=== PATIENT | male | born 1965 | race Caucasian/White ===

== ENCOUNTER 2016-07-11 05:07 | Inpatient (IN) | payer BC ==
[~2016-07-11] VITALS: Ht 182.9 cm; Wt 110.8 kg
[~2016-07-11 05:07] MED LIST: ALBUTEROL SULF8.5 GM IH; AZITHROMYCIN500 M1 PO; CEFTIN500 MG PO; CYCLOBENZAPRINE10 MG PO; DUONEB 2.5-0.5 M3 ML IH; ESCITALOPRAM OX10 MG PO; LEVAQUIN750 MG PO; MEN'S ONE DAIL1 EACH PO; MONTELUKAST SOD10 MG PO; PREDNISONE10 MG PO; PREDNISONE20 MG PO; PREDNISONE50 MG PO; PROAIR HFA8.5 GM IH; PROVENTIL,2.5 MG/3 M IH; SYMBICORT60 INHALAT IH; TENSION HEADAC1 EACH PO; VENTOLIN HFA18 GM IH; VITAMIN D250000 UNIT PO; ZITHROMAX Z-PA250 MG PO
[2016-07-11 05:48] LABS: CARBON DIOXIDE (BICARBONATE) 28.5 MEQ/L (20-31)
[2016-07-11 05:52] LABS: CHLORIDE 108 mEq/L (99-109); SODIUM 141 mEq/L (136-147)
[2016-07-11 05:54] LABS: GLUCOSE 153 mg/dL (70-99)
[2016-07-11 05:55] LABS: ANION GAP 9 MEQ/L (2-14)
[2016-07-11 05:58] LABS: HEMATOCRIT 45.4 % (38.0-50.0); MCH 29.5 PG (29.0-34.0); MCHC 33.3 G/DL (30.0-36.0); MCV 88.7 FL (86-99); MEAN PLAT.VOLUME 10.4 uM^3 (9.0-12.4); PLATELET COUNT 179 K/uL (156-360); RBC DIS.WIDTH-SD 38.7 % (39-53); RED BLOOD COUNT 5.12 M/uL (4.00-5.50); WHITE BLOOD COUNT 8.1 K/uL (4.1-10.2)
[2016-07-11 05:58] LABS: GFR ESTIMATE (CALCULATED) > 59 mL/min/
[2016-07-11 05:59] LABS: UREA NITROGEN (BUN) 17 mg/dL (9-23)
[2016-07-11 06:06] LABS: TROP-I INTERPRETATION NEGATIVE; TROPONIN-I < 0.01 ng/mL (0.0-0.30)
[2016-07-11 09:02] LABS: BASE EXCESS -3.2 mEq/L (-3 to +3); BICARBONATE 22.7 mEq/L (22-26); CARBOXY HGB 1.5 % (0-5); COMMENTS - BLOOD GASES A+C+; DEVICE NC; METHEMOGLOBIN 1.1 % (0-1.5); O2 FLOW 2 L/MIN; PCO2 43 mm Hg (35-45); PO2 78 mm Hg (80-100); SITE RR; TOTAL RESP RATE 13 resp/min; pH 7.33 (7.35-7.45)
[2016-07-11] MEDS ORDERED: PROAIR HFA8.5 GM IH (11:54)
[2016-07-11] MEDS ORDERED: CELEXA20 MG PO (11:57)
[2016-07-11 12:06] VITALS: BP 113/56
[2016-07-11 15:10] VITALS: BP 125/56
[2016-07-11 20:00] VITALS: BP 106/66
[2016-07-12] VITALS (7 sets, daily range): BP systolic 108–131; BP diastolic 52–78
[2016-07-12 05:42] LABS: ANION GAP 9 MEQ/L (2-14); CHLORIDE 108 MEQ/L (99-109); GFR ESTIMATE (CALCULATED) > 59 mL/min/; GLUCOSE 147 mg/dL (70-99); POTASSIUM 4.2 MEQ/L (3.7-5.4); SAMPLE HEMOLYSIS CHECK 0; SAMPLE ICTERIC CHECK 0; SAMPLE LIPEMIA CHECK 0; SODIUM 144 MEQ/L (136-147); UREA NITROGEN (BUN) 15 mg/dL (9-23)
[2016-07-12 06:30] LABS: HEMATOCRIT 39.2 % (38.0-50.0); MCH 29.6 PG (29.0-34.0); MCHC 33.2 G/DL (30.0-36.0); MCV 89.3 FL (86-99); PLATELET COUNT 191 K/uL (156-360); RBC DIS.WIDTH-CV 12.5 % (11.8-14.6); RBC DIS.WIDTH-SD 40.7 % (39-53); RED BLOOD COUNT 4.39 M/uL (4.00-5.50)
[2016-07-12 06:41] LABS: WHITE BLOOD COUNT 14.1 K/uL (4.1-10.2)
[2016-07-13 03:50] VITALS: BP 126/76
[2016-07-13 07:55] LABS: HEMATOCRIT 41.5 % (38.0-50.0); MCH 29.6 PG (29.0-34.0); MCHC 32.8 G/DL (30.0-36.0); MCV 90.2 FL (86-99); MEAN PLAT.VOLUME 10.4 uM^3 (9.0-12.4); PLATELET COUNT 199 K/uL (156-360); RBC DIS.WIDTH-CV 12.8 % (11.8-14.6); RBC DIS.WIDTH-SD 41.8 % (39-53); WHITE BLOOD COUNT 20.3 K/uL (4.1-10.2)
[2016-07-13 08:19] VITALS: BP 130/76
[2016-07-13 08:19] LABS: ANION GAP 7 MEQ/L (2-14); CHLORIDE 109 MEQ/L (99-109); GFR ESTIMATE (CALCULATED) > 59 mL/min/; GLUCOSE 99 mg/dL (70-99); MAGNESIUM 2.1 mg/dl (1.3-2.7); POTASSIUM 4.1 MEQ/L (3.7-5.4); SAMPLE HEMOLYSIS CHECK 0; SAMPLE ICTERIC CHECK 0; SAMPLE LIPEMIA CHECK 0; SODIUM 142 MEQ/L (136-147); UREA NITROGEN (BUN) 17 mg/dL (9-23)
[2016-07-13] MEDS ORDERED: MONTELUKAST SOD10 MG PO (08:35)
[2016-07-13] MEDS ORDERED: ADVAIR HFA120 INHALA IH (08:35)
[2016-07-13] MEDS ORDERED: PREDNISONE20 MG PO (08:35)
== END 2016-07-13 12:08 | disposition home or self-care (01) | DRG 189 ==
LOC: EME 05:07 → 4SOUTH 08:36 → EDOF 08:36 → 4SOUTH 12:03
PROVIDERS: Emergency Medicine; Hospitalist; Internal Medicine
DX: J96.01 Acute respiratory failure with hypoxia (principal); J44.1 Chronic obstructive pulmonary disease with (acute) exacerbation; J44.0 Chronic obstructive pulmonary disease with (acute) lower respiratory infection; J18.9 Pneumonia, unspecified organism; E87.2 Acidosis; Z87.891 Personal history of nicotine dependence; E66.9 Obesity, unspecified; Z88.2 Allergy status to sulfonamides; Z88.6 Allergy status to analgesic agent; J96.02 Acute respiratory failure with hypercapnia; J20.9 Acute bronchitis, unspecified
CPT/HCPCS: 36600; 71010; 80048; 82803; 83605; 83735; 83880; 84484; 85027; 87040; 93005; 94002; 94640; 94640 76; 94799; 99202; 99281; 99285; J0696; J1100; J1650; J2543; J2930; J3370; J7030; J7050; J7512; J7644

== ENCOUNTER 2016-12-20 09:48 | Emergency (ER) | payer BC ==
[~2016-12-20] VITALS: Ht 182.9 cm; Wt 100.4 kg
[~2016-12-20 09:48] MED LIST changes: +ADVAIR HFA120 INHALA IH; +CELEXA20 MG PO
[2016-12-20 11:54] LABS: BASOPHIL COUNT 0.1 K/uL (0-0.1); EOSINOPHIL (%) 4.1 % (0-5); EOSINOPHIL COUNT 0.4 K/uL (0-0.3); HEMATOCRIT 44.7 % (38.0-50.0); IMMATURE GRANULOCYTE (%) 0.9 % (0.0-0.7); IMMATURE GRANULOCYTE COUNT 0.1 K/uL; INSTRUMENT ABS NEUTROPHIL CT 6.5 K/uL; LYMPHOCYTE COUNT 2.2 K/uL (1.0-2.8); MCH 29.3 PG (29.0-34.0); MCHC 34.2 G/DL (30.0-36.0); MCV 85.5 FL (86-99); MEAN PLAT.VOLUME 10.8 uM^3 (9.0-12.4); MONOCYTE (%) 5.8 % (3-12); MONOCYTE COUNT 0.6 K/uL (0-0.8); NEUTROPHIL (%) 66.1 % (45-76); NEUTROPHIL COUNT 6.5 K/uL (1.8-6.4); PLATELET COUNT 174 K/uL (156-360); RBC DIS.WIDTH-CV 12.2 % (11.8-14.6); RBC DIS.WIDTH-SD 38.1 % (39-53); RED BLOOD COUNT 5.23 M/uL (4.00-5.50); WHITE BLOOD COUNT 9.8 K/uL (4.1-10.2)
[2016-12-20 12:04] LABS: CHLORIDE 108 mEq/L (99-109); POTASSIUM 3.9 mEq/L (3.7-5.4); SODIUM 139 mEq/L (136-147)
[2016-12-20 12:06] LABS: GLUCOSE 100 mg/dL (70-99)
[2016-12-20 12:07] LABS: ANION GAP 8 MEQ/L (2-14)
[2016-12-20 12:09] LABS: GFR ESTIMATE (CALCULATED) > 59 mL/min/
[2016-12-20 12:10] LABS: UREA NITROGEN (BUN) 17 mg/dL (9-23)
[2016-12-20] MEDS ORDERED: FIORICET WI1 CAPSULE PO (13:22)
[2016-12-20 14:11] VITALS: BP 100/68
== END 2016-12-20 14:12 | disposition home or self-care (01) ==
LOC: EME 09:48
PROVIDERS: Emergency Medicine
DX: R51 Headache (principal); J44.9 Chronic obstructive pulmonary disease, unspecified; Z87.891 Personal history of nicotine dependence
CPT/HCPCS: 70450; 80048; 85025; 99281; 99285; J2270; J2765; J7030

== ENCOUNTER 2016-12-29 01:54 | Inpatient (IN) | payer BC ==
[~2016-12-29] VITALS: Ht 182.9 cm; Wt 97.0 kg
[~2016-12-29 01:54] MED LIST changes: +FIORICET WI1 CAPSULE PO
[2016-12-29 02:45] LABS: HEMATOCRIT 43.7 % (38.0-50.0); MCH 29.3 PG (29.0-34.0); MCHC 33.6 G/DL (30.0-36.0); MCV 87.1 FL (86-99); MEAN PLAT.VOLUME 10.9 uM^3 (9.0-12.4); PLATELET COUNT 156 K/uL (156-360); RBC DIS.WIDTH-CV 12.5 % (11.8-14.6); RBC DIS.WIDTH-SD 39.8 % (39-53); RED BLOOD COUNT 5.02 M/uL (4.00-5.50)
[2016-12-29 02:50] LABS: CHLORIDE 112 mEq/L (99-109); POTASSIUM 3.5 mEq/L (3.7-5.4); SODIUM 142 mEq/L (136-147)
[2016-12-29 02:52] LABS: GLUCOSE 97 mg/dL (70-99)
[2016-12-29 02:53] LABS: ANION GAP 7 MEQ/L (2-14)
[2016-12-29 02:56] LABS: GFR ESTIMATE (CALCULATED) > 59 mL/min/
[2016-12-29 02:57] LABS: UREA NITROGEN (BUN) 21 mg/dL (9-23)
[2016-12-29 05:03] LABS: TROP-I INTERPRETATION NEGATIVE; TROPONIN-I 0.02 ng/mL (0.0-0.30)
[2016-12-29 05:52] VITALS: BP 120/74
[2016-12-29 08:00] VITALS: BP 135/79
[2016-12-29 08:59] LABS: HDL CHOLESTEROL 27 MG/DL (Desirable>=40); LDL CHOLESTEROL 151 mg/dL (Desirable<100); NON-HDL CHOLESTEROL 179 mg/dL (Desirable<160); TOTAL CHOLESTEROL 206 mg/dL (Desirable<200); TRIGLYCERIDES 139 MG/DL (Normal: <150)
[2016-12-29 09:08] LABS: TROP-I INTERPRETATION NEGATIVE; TROPONIN-I < 0.01 ng/mL (0.0-0.30)
[2016-12-29] MEDS ORDERED: PULMICORT1 MG/2 ML IH (14:12)
[2016-12-29] MEDS ORDERED: ADVAIR 250/501 DISK IH (14:12)
[2016-12-29] MEDS ORDERED: VIBRAMYCIN100 MG PO (14:13)
[2016-12-29 15:02] LABS: TROP-I INTERPRETATION NEGATIVE; TROPONIN-I < 0.01 ng/mL (0.0-0.30)
[2016-12-29 15:30] VITALS: BP 137/69
[2016-12-30 00:58] VITALS: BP 98/58
[2016-12-30 08:07] VITALS: BP 124/68
[2016-12-30 16:00] VITALS: BP 118/68
[2016-12-30 23:39] VITALS: BP 116/65
[2016-12-31 08:39] VITALS: BP 136/74
[2016-12-31] MEDS ORDERED: SPIRIVA RESPIMAT4 GM IH (09:55)
[2016-12-31] MEDS ORDERED: ADVAIR 250/501 DISK IH (09:56)
[2016-12-31] MEDS ORDERED: PREDNISONE10 MG PO (09:56)
[2016-12-31] MEDS ORDERED: AZITHROMYCIN250 MG PO (09:56)
== END 2016-12-31 11:21 | disposition home or self-care (01) | DRG 190 ==
LOC: EME → EDBD 01:54 → EDOF 03:59 → 5SOUTH 03:59 → ENRESERV 04:00 → 5SOUTH 05:41
PROVIDERS: Emergency Medicine; Physician Assistant Medical
DX: J44.1 Chronic obstructive pulmonary disease with (acute) exacerbation (principal); J96.01 Acute respiratory failure with hypoxia; J44.0 Chronic obstructive pulmonary disease with (acute) lower respiratory infection; J20.9 Acute bronchitis, unspecified; F32.9 Major depressive disorder, single episode, unspecified; R00.2 Palpitations; R07.89 Other chest pain; R94.31 Abnormal electrocardiogram [ECG] [EKG]; E66.9 Obesity, unspecified; Z68.29 Body mass index [BMI] 29.0-29.9, adult; Z99.81 Dependence on supplemental oxygen; Z87.891 Personal history of nicotine dependence; Z88.2 Allergy status to sulfonamides; Z88.6 Allergy status to analgesic agent
CPT/HCPCS: 71020; 80048; 80061; 84484; 85027; 93005; 94640; 94640 76; 94760; 99202; 99281; 99283; J1650; J7512; J7644

== ENCOUNTER 2017-07-14 08:29 | Emergency (ER) | payer BC ==
[~2017-07-14] VITALS: Ht 182.9 cm; Wt 98.4 kg
[~2017-07-14 08:29] MED LIST changes: +ADVAIR 250/501 DISK IH; +AZITHROMYCIN250 MG PO; +PULMICORT1 MG/2 ML IH; +SPIRIVA RESPIMAT4 GM IH; +VIBRAMYCIN100 MG PO
[2017-07-14 09:06] LABS: BASOPHIL (%) 0.6 % (0-1); EOSINOPHIL (%) 9.7 % (0-5); EOSINOPHIL COUNT 0.7 K/uL (0-0.3); HEMATOCRIT 45.2 % (38.0-50.0); HEMOGLOBIN 15.5 G/DL (12.5-16.6); IMMATURE GRANULOCYTE (%) 0.7 % (0.0-0.7); LYMPHOCYTE (%) 27.7 % (15-42); LYMPHOCYTE COUNT 1.9 K/uL (1.0-2.8); MCH 29.5 PG (29.0-34.0); MCHC 34.3 G/DL (30.0-36.0); MCV 86.1 FL (86-99); MONOCYTE (%) 7.6 % (3-12); MONOCYTE COUNT 0.5 K/uL (0-0.8); NEUTROPHIL (%) 53.7 % (45-76); NEUTROPHIL COUNT 3.8 K/uL (1.8-6.4); PLATELET COUNT 167 K/uL (156-360); RBC DIS.WIDTH-CV 12.3 % (11.8-14.6); RBC DIS.WIDTH-SD 38.6 % (39-53); RED BLOOD COUNT 5.25 M/uL (4.00-5.50)
[2017-07-14 09:17] LABS: CHLORIDE 109 mEq/L (99-109); SODIUM 141 mEq/L (136-147)
[2017-07-14 09:18] LABS: GLUCOSE 108 mg/dL (70-99)
[2017-07-14 09:22] LABS: CREATININE 0.7 mg/dL (0.6-1.3); GFR ESTIMATE (CALCULATED) > 59 mL/min/ (58.99-99999)
[2017-07-14 09:23] LABS: UREA NITROGEN (BUN) 14 mg/dL (9-23)
[2017-07-14] MEDS ORDERED: ZITHROMAX Z-PA250 MG PO (12:40)
[2017-07-14] MEDS ORDERED: PREDNISONE50 MG PO (12:41)
[2017-07-14 14:16] VITALS: BP 128/80
== END 2017-07-14 14:18 | disposition home or self-care (01) ==
LOC: EME 08:29
PROVIDERS: Emergency Medicine
DX: J44.1 Chronic obstructive pulmonary disease with (acute) exacerbation (principal); Z99.81 Dependence on supplemental oxygen
CPT/HCPCS: 80048; 85025; 94640; 94640 76; 99281; 99284; J1100; J7644

== ENCOUNTER → 2017-09-27 | Outpatient (CLI) | payer BC | END | disposition home or self-care (01) | LOC: CDC 09:56 | DX: R07.9 Chest pain, unspecified (principal) | CPT/HCPCS: 93000 ==

== ENCOUNTER 2017-10-30 02:13 | Inpatient (IN) | payer BC ==
[~2017-10-30] VITALS: Ht 182.9 cm; Wt 101.8 kg
[2017-10-30 02:42] LABS: HEMATOCRIT 47.7 % (38.0-50.0); HEMOGLOBIN 16.4 G/DL (12.5-16.6); MCH 30.3 PG (29.0-34.0); MCHC 34.4 G/DL (30.0-36.0); PLATELET COUNT 233 K/uL (156-360); RBC DIS.WIDTH-CV 12.1 % (11.8-14.6); RBC DIS.WIDTH-SD 39.3 % (39-53); RED BLOOD COUNT 5.42 M/uL (4.00-5.50); WHITE BLOOD COUNT 11.2 K/uL (4.1-10.2)
[2017-10-30 02:49] LABS: ALBUMIN 4.2 g/dL (3.2-4.8); CHLORIDE 106 mEq/L (99-109); POTASSIUM 4.3 mEq/L (3.7-5.4)
[2017-10-30 02:50] LABS: SODIUM 141 mEq/L (136-147)
[2017-10-30 02:52] LABS: GLUCOSE 134 mg/dL (70-99); TOTAL PROTEIN 6.7 g/dL (6.4-8.3)
[2017-10-30 02:55] LABS: ALKALINE PHOSPHATASE 76 IU/L (3-129); CREATININE 0.8 mg/dL (0.6-1.3); GFR ESTIMATE (CALCULATED) > 59 mL/min/ (58.99-99999)
[2017-10-30 02:55] LABS: COMMENTS - BLOOD GASES C+A+; DEVICE NIV; FI02 100 %; MODE SPONT; PCO2 60 mm Hg (35-45); PEEP 8 CM/H20; PO2 > 596 mm Hg (80-100); PRES. SUPPORT 12 CM/H2O; SITE LR; TOTAL RESP RATE 12 resp/min; pH 7.31 (7.35-7.45)
[2017-10-30 02:56] LABS: BASE EXCESS 2 mEq/L (-3 to +3); BICARBONATE 30.2 mEq/L (22-26); CARBOXY HGB 1.2 % (0-5); METHEMOGLOBIN 1.2 % (0-1.5)
[2017-10-30 02:57] LABS: AST (GOT) 15 IU/L (2-34); UREA NITROGEN (BUN) 17 mg/dL (9-23)
[2017-10-30 02:58] LABS: ALT (GPT) 22 IU/L (3-49)
[2017-10-30 02:59] LABS: LIPASE 20 U/L (1.0-51.0)
[2017-10-30 03:02] LABS: TROP-I INTERPRETATION NEGATIVE; TROPONIN-I < 0.01 ng/mL (0.0-0.30)
[2017-10-30 04:39] LABS: BASE EXCESS 1.3 mEq/L (-3 to +3); BICARBONATE 28.9 mEq/L (22-26); CARBOXY HGB 1.5 % (0-5); COMMENTS - BLOOD GASES C+A+; DEVICE HFNC; FI02 50 %; METHEMOGLOBIN 1 % (0-1.5); O2 FLOW 40 L/MIN; PCO2 56 mm Hg (35-45); PO2 103 mm Hg (80-100); SITE LR; pH 7.32 (7.35-7.45)
[2017-10-30 07:41] VITALS: BP 114/68
[2017-10-30 07:50] VITALS: BP 114/68
[2017-10-30 09:36] LABS: APPEARANCE CLEAR ((CLEAR)); BILIRUBIN NEGATIVE; BLOOD NEGATIVE; COLOR YELLOW ((YELLOW)); GLUCOSE (STRIP) 50; KETONES NEGATIVE; LEUKOCYTES NEGATIVE; NITRITE NEGATIVE; PROTEIN (STRIP) NEGATIVE; SPECIFIC GRAVITY 1.012 (1.000-1.030); UCUL ADDED? NO; UROBILINOGEN 0.2 MG/DL (0.2-1.0)
[2017-10-30 11:34] VITALS: BP 127/71
[2017-10-30] MEDS ORDERED: DUONEB 2.5-0.5 M3 ML AEROSOL (13:35)
[2017-10-30] MEDS ORDERED: PROVENTIL,2.5 MG/3 M IH (13:36)
[2017-10-30] MEDS ORDERED: IMITREX50 MG PO (13:37)
[2017-10-30] MEDS ORDERED: FLEXERIL5 MG PO (13:37)
[2017-10-30 16:12] VITALS: BP 132/69
[2017-10-30 20:04] VITALS: BP 123/66
[2017-10-30 23:03] VITALS: BP 121/81
[2017-10-31 03:45] VITALS: BP 123/77
[2017-10-31 05:37] LABS: HEMATOCRIT 44.3 % (38.0-50.0); HEMOGLOBIN 14.7 G/DL (12.5-16.6); MCH 29.4 PG (29.0-34.0); MCHC 33.2 G/DL (30.0-36.0); MCV 88.6 FL (86-99); PLATELET COUNT 230 K/uL (156-360); RBC DIS.WIDTH-CV 12.2 % (11.8-14.6); RBC DIS.WIDTH-SD 39.5 % (39-53); WHITE BLOOD COUNT 20.8 K/uL (4.1-10.2)
[2017-10-31 06:00] LABS: CHLORIDE 106 MEQ/L (99-109); CREATININE 0.7 MG/DL (0.6-1.3); GFR ESTIMATE (CALCULATED) > 59 mL/min/ (58.99-99999); GLUCOSE 143 mg/dL (70-99); MAGNESIUM 2.1 mg/dl (1.3-2.7); POTASSIUM 4.3 MEQ/L (3.7-5.4); SODIUM 141 MEQ/L (136-147); UREA NITROGEN (BUN) 15 mg/dL (9-23)
[2017-10-31 08:42] VITALS: BP 131/67
[2017-10-31 11:58] VITALS: BP 110/64
[2017-10-31 16:00] VITALS: BP 126/74
[2017-10-31 18:56] VITALS: BP 131/71
[2017-10-31 20:19] VITALS: BP 135/76
[2017-11-01 00:08] VITALS: BP 140/81
[2017-11-01 07:47] VITALS: BP 126/73
[2017-11-01 08:51] LABS: HEMATOCRIT 43.4 % (38.0-50.0); HEMOGLOBIN 14.2 G/DL (12.5-16.6); MCH 29.2 PG (29.0-34.0); MCHC 32.7 G/DL (30.0-36.0); MCV 89.3 FL (86-99); PLATELET COUNT 211 K/uL (156-360); RBC DIS.WIDTH-CV 12.2 % (11.8-14.6); RBC DIS.WIDTH-SD 40.3 % (39-53); RED BLOOD COUNT 4.86 M/uL (4.00-5.50); WHITE BLOOD COUNT 22.9 K/uL (4.1-10.2)
[2017-11-01 11:30] VITALS: BP 135/77
[2017-11-01 15:47] VITALS: BP 139/79
[2017-11-01 23:43] VITALS: BP 130/80
[2017-11-02 06:36] LABS: HEMATOCRIT 41.4 % (38.0-50.0); HEMOGLOBIN 13.8 G/DL (12.5-16.6); MCH 29.7 PG (29.0-34.0); MCHC 33.3 G/DL (30.0-36.0); MCV 89.2 FL (86-99); PLATELET COUNT 215 K/uL (156-360); RBC DIS.WIDTH-CV 12.2 % (11.8-14.6); RBC DIS.WIDTH-SD 39.6 % (39-53); RED BLOOD COUNT 4.64 M/uL (4.00-5.50); WHITE BLOOD COUNT 24.3 K/uL (4.1-10.2)
[2017-11-02 06:45] VITALS: BP 131/85
[2017-11-02] MEDS ORDERED: PREDNISONE10 MG PO (15:03)
== END 2017-11-02 17:41 | disposition home or self-care (01) | DRG 190 ==
LOC: EME → EDBD 02:23 → 5EAST 06:15 → EDOF 06:15 → 4EAST 06:15 → ENRESERV 06:23 → 4EAST 07:17 → ENRESERV 10-31 18:06 → 5EAST 10-31 19:31
PROVIDERS: Emergency Medicine; Hospitalist; Physician Assistant
DX: J44.1 Chronic obstructive pulmonary disease with (acute) exacerbation (principal); J96.21 Acute and chronic respiratory failure with hypoxia; E87.2 Acidosis; F33.9 Major depressive disorder, recurrent, unspecified; J20.9 Acute bronchitis, unspecified; Z99.81 Dependence on supplemental oxygen; J44.0 Chronic obstructive pulmonary disease with (acute) lower respiratory infection; G47.30 Sleep apnea, unspecified; Z87.891 Personal history of nicotine dependence; Z79.51 Long term (current) use of inhaled steroids; Z88.6 Allergy status to analgesic agent; Z88.3 Allergy status to other anti-infective agents; Z82.49 Family history of ischemic heart disease and other diseases of the circulatory system
CPT/HCPCS: 36600; 71045; 80048; 80053; 81003; 82803; 83605; 83690; 83735; 83880; 84484; 85027; 87040; 87070; 87205; 93005; 94002; 94640; 94644; 94760; 94799; 99281; 99285; J0692; J1650; J2405; J2930; J3475; J7030; J7512